=== PATIENT | female | born 1955 | race Caucasian/White ===

== ENCOUNTER 2019-11-25 06:49 | Observation (INO) | payer MEDICARE ==
[2019-11-15 13:07] VITALS: BP 123/70
--- NOTE | 2019-11-15 16:09 | NUR ---
DC Plan Received call from patient's physical therapist. Informing of patient's scheduled shoulder surgery and recommendation of inpatient rehab. Informed CM will discuss this as an option if patient and Dr. Saini are agreeable. CM to follow up after surgery. CD
--- NOTE | 2019-11-15 16:32 | NUR ---
NOTIFY DR. PRINGLE'S IN HOLDING AREA, PT IS TO HAVE REHAB SERVICES POST PROCEDURE. PLEASE HAVE DR. PRINGLE'S DISCUSS WITH PT. IS REQUESTING ASSISTANCE AT HOME.
[2019-11-25] VITALS (26 sets, daily range): BP systolic 111–153; BP diastolic 49–84
[~2019-11-25] VITALS: Ht 167.6 cm; Wt 68.9 kg
[~2019-11-25 06:49] MED LIST: CEFAZOLIN SODIUM 1 GM VIAL IVP SCH; CITA40TA14 PO
[2019-11-25] MEDS ORDERED: LACTATED RINGERS 1000ML 1,000 ML IV ONE (08:05)
[2019-11-25] MEDS ORDERED: EPINEPHRINE 1 MG/ML 30ML VIAL IJ ONE (08:32)
[2019-11-25] MEDS ORDERED: LIDOCAINE PF 2% 5ML ABBOJECT ONE (08:40)
[2019-11-25] MEDS ORDERED: ROPIVACAINE 0.5% 5MG/ML 30ML IJ ONE ×2 (08:40→09:23)
[2019-11-25] MEDS ORDERED: PROPOFOL 10 MG/ML 20ML VIAL IV ONE (08:40)
[2019-11-25] MEDS ORDERED: MIDAZOLAM HCL 1 MG/ML 2ML VIAL ONE (08:40)
[2019-11-25] MEDS ORDERED: FENTANYL CITRATE PF 50 MCG/1 ML 2ML VIAL ONE ×2 (08:41→11:06)
[2019-11-25] MEDS ORDERED: ROCURONIUM 10MG/1ML SYR 10 MG/ML ML ONE ×2 (08:41→10:38)
--- NOTE | 2019-11-25 08:45 | NUR ---
DISCHARGE PLANNING pt requesting to speak to mission planner Jessica called extension [phone] spoke to Jessica Raymundo RN stated she would discuss discharge plan with patient today ,aware of pts history Addendum: 11/25/19 at 1025 by ELIDIA LARSEN RN RN Amended: Links added.
[2019-11-25] MEDS: CEFAZOLIN SODIUM 1 GM VIAL ONE ×2 (09:18→10:05)
[2019-11-25] MEDS ORDERED: ACET-66 PO (09:20)
[2019-11-25] MEDS ORDERED: NEOSTIGMINE 5MG/5ML SYR IV ONE (10:41)
[2019-11-25] MEDS ORDERED: GLYCOPYRROLATE 1 MG/5 ML SYRINGE ONE (10:41)
[2019-11-25] MEDS ORDERED: EPHEDRINE SULFATE 50 MG/ML AMPULE ONE (10:43)
[2019-11-25] MEDS ORDERED: DEXAMETHASONE SOD PHOSPHATE 4 MG/ML 1ML VIAL ONE (10:47)
[2019-11-25] MEDS ORDERED: KETOROLAC TROMETHAMINE 30MG/ML ONE (10:48)
[2019-11-25] MEDS ORDERED: ONDANSETRON HCL 4 MG/2 ML VIAL ONE (10:48)
[2019-11-25] MEDS ORDERED: ARTIFICIAL TEARS 3.5 GM OINTMENT ONE (11:42)
[2019-11-25] MEDS ORDERED: HYDR-4457 PO (11:58)
[2019-11-25] MEDS ORDERED: CEPH-578 PO (11:58)
[2019-11-25] MEDS ORDERED: NAPR-1192 PO (11:58)
[2019-11-25] MEDS ORDERED: MEPERIDINE-PF 25 MG/ML SYG ONE (12:05)
--- NOTE | 2019-11-25 14:30 | NUR ---
INITIAL MET W PATIENT FOR THE PURPOSE OF DISCHARGE PLANNING. SEEN IN PACU ATTENDNED BY PACU NURSE. PT IS ALERT/AWAKER/ DENIES DISCOMFORT, ARM/SHOULDER FROZEN LEVON PT. PT STATES THAT SHE LIES W HER BUT DOES HTE MAJORITY OF THING SOF RHERSELF. 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 PT HAS BKA/AKA AND HAS HAD NO PROBLEM MAINTAINING YOU INDEPENDENCE. PT STATES DOES NOT FEEL SAFE TO GO ; WILL BE TOO HELPLESS. SPOKE TO DR. BO RE: [facility], SPOKE WITH PATIENT , WILLIE SIGNED FOR [facility], AND SPOKE TO REYNA. INITIAL REFERRAL ENTERED AND FAXED Addendum: 11/25/19 at 1658 by GRAEME BAIRES RN Amended: Links added.
[2019-11-25] MEDS ORDERED: KETOROLAC TROMETHAMINE 15MG/ML IV PRN (14:45)
[2019-11-25] MEDS ORDERED: ONDANSETRON HCL 4 MG/2 ML VIAL IVP PRN (14:45)
[2019-11-25] MEDS ORDERED: HYDROCODONE/ACETAMINOPHEN 5/325 MG TAB PO PRN (14:45)
[2019-11-25] MEDS: CEFAZOLIN SODIUM 1 GM VIAL IVP SCH (16:28)
--- NOTE | 2019-11-25 16:59 | NUR ---
TATE TO OSMANI BO AWARE PT EVAL FAXED REYNA STATES WILL GET ALL THE INFO IN AND HOPEFULLY GET IT APPROVED TODAY FOR TOMORROW MORNING. MOT SIGNED BY BETZY
--- NOTE | 2019-11-25 17:40 | NUR ---
1649 had pt sign MARTINEZ Letter,faxed to [phone] and placed in chart under consent tab
[2019-11-25] MEDS ORDERED: ENOXAPARIN SODIUM 40 MG/0.4 ML SYRINGE SQ SCH (21:00)
[2019-11-25] MEDS: HYDROCODONE/ACETAMINOPHEN 5/325 MG TAB PO PRN (23:14)
[2019-11-26 00:12] VITALS: BP 105/57
[2019-11-26] MEDS: CEFAZOLIN SODIUM 1 GM VIAL IVP SCH (00:51)
[2019-11-26 04:16] VITALS: BP 121/70
[2019-11-26] MEDS: HYDROCODONE/ACETAMINOPHEN 5/325 MG TAB PO PRN (05:24)
--- NOTE | 2019-11-26 07:20 | NUR ---
ACCEPTED AT [facility] CHART TAGGED EMS FORM FAXED HS DARCY NOTIFIED TO SIGN MOT PUMP PRESS OPERATOR SANJEEV MADE AWARE
--- NOTE | 2019-11-26 07:37 | NUR ---
VOIDING PT C/O BLADDER FULLNESS/PRESSURE, HAD 1 PREVIOUS INCONTINENT VOID. BLADDER SCAN 620ML IN BLADDER, VOIDED 25ML ON BEDPAN, POST VOID BLADDER SCAN 597ML IN BLADDER. STRAIGHT CATH X1 DONE AT 02:30, 475ML OF CLEAR YELLOW URINE DRAINED, PT STATED BLADDER PRESSURE FEELING MUCH BETTER. SANJEEV AFTER SCHOOL PROGRAM COORDINATOR MADE AWARE THIS MORNING, NO NEW ORDERS AT THIS TIME.
[2019-11-26 07:55] VITALS: BP 121/59
[2019-11-26] MEDS ORDERED: CITALOPRAM 20 MG TABLET PO SCH (09:00)
[2019-11-26 11:40] VITALS: BP 117/68
--- NOTE | 2019-11-26 12:38 | NUR ---
d/c report has been called and faxed to elvis at [facility]; i have called dr alfaro for clarification of physical therapy orders and im sending a copy of these orders with patient; pt's chart has been copied; scripts placed in copy of chart for rehab; i have have called [facility] ems and requested pickling grader
--- NOTE | 2019-11-26 12:51 | NUR ---
pt stated understanding of all d/c instructions on after care for a shoulder arthroscopy; iv access removed; pt understands she has follow up on 12-09-19 w/ dr alfaro and that med scrips have been placed in chart copy for inpatient rehab. pending ems to [facility] at this time.
== END 2019-11-26 14:47 ==
LOC: DAH 06:49 → 4AH 06:50 → DAH 06:50
PROVIDERS: ADMIT Orthopaedic Surgery; ATTEND Orthopaedic Surgery
PROC: 0RNJ4ZZ Release Right Shoulder Joint, Percutaneous Endoscopic Approach (ICD-10-PCS; principal; 2019-11-25 09:19)
PROC: 0LQ14ZZ Repair Right Shoulder Tendon, Percutaneous Endoscopic Approach (ICD-10-PCS; 2019-11-25 09:19)
DX: S43.431A Superior glenoid labrum lesion of right shoulder, initial encounter (principal); M75.101 Unspecified rotator cuff tear or rupture of right shoulder, not specified as traumatic; X58.XXXA Exposure to other specified factors, initial encounter; Y93.89 Activity, other specified; Y92.89 Other specified places as the place of occurrence of the external cause; Y99.8 Other external cause status
CPT/HCPCS: 29826; 29827; 96372; 96374; 96376; 97039; 97161; 97530 ×2; A4215; A4221; A4222; A4223; A4565; A4649 ×5; A4663; A4930; A5120; A6204; A6260; C1713 ×2; G0168; G0378 ×24; G8981; G8982; G8983; J0171; J0690 ×3; J1100; J1650; J1885; J2001; J2175; J2250; J2405; J2704; J2710; J2795 ×2; J3010 ×2; J3490 ×2; J7120 ×2